=== PATIENT | male | born 1980 | race Caucasian/White ===

== ENCOUNTER 2017-10-11 04:14 | Emergency (ER) | payer BC ==
[2017-10-11 04:59] LABS: ABS Basophils 0.1 10^3/ul (0-0.2); ABS Eosinophils 0.1 10^3/ul (0-0.6); ABS Lymphocytes 1.8 10^3/ul (1.0-4.8); ABS Monocytes 0.7 10^3/ul (0-0.8); ABS Nucleated RBC 0 10^3/ul; Eosinophil % 1.3 % (0-6); Hematocrit 40 % (42-52); Hemoglobin 13.8 g/dl (14.0-18.0); Lymphocyte % 23.1 % (25-47); Mean Corpuscular HGB Conc 34 g/dl (31-36); Mean Corpuscular Hemoglobin 31 pg (27-31); Mean Corpuscular Volume 89 fL (80-94); Mean Platelet Volume 6.7 um3 (7.4-10.4); Nucleated Red Blood Cells % 0; Platelet Count 335 10^3/ul (150-450); Red Blood Count 4.53 10^6/ul (4.0-5.4); Red Cell Distribution Width 13 % (10.5-15); White Blood Count 7.6 10^3/ul (3.5-10.8)
[2017-10-11 05:15] LABS: EGFR Non-African American 109.2 (>60)
[2017-10-11] MEDS ORDERED: Iohexol 300* (CONTRAST) 10 ML SDV IV ONE (05:19)
[2017-10-11] MEDS ORDERED: Clindamycin 900 MG IVPREMIX(* 900 MG/50 ML SDV IV ONE (06:27)
--- NOTE | 2017-10-11 06:48 | ED ---
Anshul Field Jennifer, scribed for Aneudy Rain MD on 10/11/17 at 0443 . Throat Pain/Nasal Congestion - HPI Summary HPI Summary: The patient is a 37 year old male who presents with right sided facial swelling for one day. The patient describes it started out as a small bump yesterday but got bigger this morning. He went to see his PCP yesterday at 14:00, but it has doubled in size since then. The patient additionally complain of right ear pain and right jaw aching. - History of Current Complaint Chief Complaint: EDFacialInjury Time Seen by Provider: 10/11/17 04:18 Hx Obtained From: Patient Onset/Duration: Sudden Onset, Lasting Days - 1 day, Still Present, Worse Since - 14:00 yesterday Severity: Moderate Cough: None - Allergies/Home Medications Allergies/Adverse Reactions: Allergies Allergy/AdvReac Type Severity Reaction Status Date / Time No Known Allergies Allergy Verified 09/17/13 06:28 PMH/Surg Hx/FS Hx/Imm Hx Endocrine/Hematology History: Denies: Hx Diabetes Cardiovascular History: Denies: Hx Hypertension, Hx Pacemaker/ICD Sensory History: Reports: Hx Contacts or Glasses - WILL WEAR GLASSES DAY OF SURGERY Denies: Hx Hearing Aid Opthamlomology History: Reports: Hx Contacts or Glasses - WILL WEAR GLASSES DAY OF SURGERY Psychiatric History: Denies: Hx Panic Disorder - Surgical History Surgery Procedure, Year, and Place: RT KNEE SURGERY Hx Anesthesia Reactions: No Infectious Disease History: No Infectious Disease History: Denies: Traveled Outside the [place] in Last 30 Days - Family History Known Family History: Negative: Diabetes - Social History Alcohol Use: Occasionally Substance Use Type: Reports: None Hx Tobacco Use: No Smoking Status (MU): Never Smoked Tobacco Review of Systems ENT: Other - jaw pain Positive: Ear Ache Positive: Other - right face swelling All Other Systems Reviewed And Are Negative: Yes Physical Exam - Summary Physical Exam Summary: Appearance: Well appearing, no pain distress Skin: warm, dry, reflects adequate perfusion Head/face: normal Eyes: EOMI, DEBBIE ENT: preauricular firm mass, tenderness without adjacent adenopathy. no real warmth to it. No gingival tenderness or swelling. dentition looks normal. Otherwise normal. Moist mucous membranes. Neck: supple, non-tender Respiratory: CTA, breath sounds present Cardiovascular: RRR, pulses symmetrical Abdomen: non-tender, soft Bowel Sounds: present Musculoskeletal: normal, strength/ROM intact Neuro: normal, sensory motor intact, A&Ox3 Triage Information Reviewed: Yes Vital Signs On Initial Exam: Initial Vitals Temp Pulse Resp BP Pulse Ox 97.8 F 65 16 128/66 100 10/11/17 04:18 10/11/17 04:18 10/11/17 04:18 10/11/17 04:18 10/11/17 04:18 Vital Signs Reviewed: Yes Diagnostics - Vital Signs Vital Signs Temp Pulse Resp BP Pulse Ox 10/11/17 04:18 97.8 F 65 16 128/66 100 - Laboratory Lab Results: Lab Results 10/11/17 10/11/17 10/11/17 Range/Units 04:49 04:49 04:49 WBC 7.6 (3.5-10.8) 10^3/ul RBC 4.53 (4.0-5.4) 10^6/ul Hgb 13.8 L (14.0-18.0) g/dl Hct 40 L (42-52) % MCV 89 (80-94) fL MCH 31 (27-31) pg MCHC 34 (31-36) g/dl RDW 13 (10.5-15) % Plt Count 335 (150-450) 10^3/ul MPV 6.7 L (7.4-10.4) um3 Neut % (Auto) 65.5 (38-83) % Lymph % (Auto) 23.1 L (25-47) % Titus % (Auto) 9.4 H (0-7) % Eos % (Auto) 1.3 (0-6) % Baso % (Auto) 0.7 (0-2) % Absolute Neuts (auto) 5.0 (1.5-7.7) 10^3/ul Absolute Lymphs (auto) 1.8 (1.0-4.8) 10^3/ul Absolute Monos (auto) 0.7 (0-0.8) 10^3/ul Absolute Eos (auto) 0.1 (0-0.6) 10^3/ul Absolute Basos (auto) 0.1 (0-0.2) 10^3/ul Absolute Nucleated RBC 0 10^3/ul Nucleated RBC % 0 Sodium 138 L (139-145) mmol/L Potassium 4.1 (3.5-5.0) mmol/L Chloride 107 (101-111) mmol/L Carbon Dioxide 27 (22-32) mmol/L Anion Gap 4 (2-11) mmol/L BUN 20 (6-24) mg/dL Creatinine 0.79 (0.67-1.17) mg/dL Est GFR ( Amer) 140.4 (>60) Est GFR (Non-Af Amer) 109.2 (>60) BUN/Creatinine Ratio 25.3 H (8-20) Glucose 105 H (70-100) mg/dL Lactic Acid 0.9 (0.5-2.0) mmol/L Calcium 9.0 (8.6-10.3) mg/dL C-Reactive Protein 17.27 H (< 5.00) mg/L Result Diagrams: 10/11/17 04:49 10/11/17 04:49 Lab Statement: Any lab studies that have been ordered have been reviewed, and results considered in the medical decision making process. - CT CT Neck CT Interpretation: No Acute Changes - The visualized intracranial and orbital contents are normal. There is edema in the right neck involving the parotid gland may represent cellulitis and/or infection the fragment. There are no stones or duct citation. No abscess. Mastoid air cells and middle ear's are patent bilaterally. IMPRESSION: Right facial cellulitis and/or parotitis without stone, duct dilation or abscess. CT Interpretation Completed By: Radiologist Re-Evaluation - Re-Evaluation First Eval Re-Evaluation Time: 06:46 Change: Unchanged EENT Course/Dx - Course Course Of Treatment: Patient with preauricular swelling and tenderness with possible parotid gland involvement versus adenopathy versus sialoadenitis. CT scan confirms parotitis. IV clindamycin was given. No fever or elevated white blood cell count. Discussed with ENT who will follow him up today in the office. Encouraged to do warm compresses to the area. Patient is not ill- appearing. - Differential Diagnoses Differential Diagnoses: Shon's Angina, Odontogenic Pain, Other - Sialoadenitis , parotitis, mumps, dental abscess - Diagnoses Provider Diagnoses: Parotitis - Provider Notifications Discussed Care Of Patient With: Hugh Naranjo Time Discussed With Above Provider: 06:35 Instructed by Provider To: Other - Dr. Naranjo will see patient in his office today at 08:30. Discharge - Sign-Out/Discharge Documenting (check all that apply): Discharge/Admit/Transfer - Discharge Plan Condition: Good Disposition: HOME Prescriptions: Clindamycin Cap(NF) [Clindamycin Cap 300 mg Cap(NF)] 300 mg PO Q6H #28 cap Forms: *Work Release Referrals: Hugh Naranjo MD [Medical Doctor] - Additional Instructions: You have parotitis. Call the office of Dr. Naranjo at 8:30 this morning and be prepared to be seen in the office today. Warm compresses to the area. Stay well hydrated. Sour candies may help. Return with fever, vomiting, worse or other concerns. - Billing Disposition and Condition Condition: GOOD Disposition: HOME The documentation as recorded by the Anshul castle Jennifer accurately reflects the service I personally performed and the decisions made by me, Aneudy Rain MD.
--- NOTE | 2017-10-11 07:55 | RAD ---
INDICATION: 2 days of left facial swelling COMPARISON: None TECHNIQUE: A CT scan of the neck was performed with intravenous contrast following intravenous injection of 50 ml of Omnipaque 300 nonionic contrast. Contiguous axial sections were obtained from the skull base through the lung apices. Images were reconstructed in the coronal and sagittal planes. FINDINGS: The airway is patent. The epiglottis and aryepiglottic folds appear within normal limits. No retropharyngeal soft tissue swelling is noted. No significant enlarged nodes are seen. There is enlargement and heterogeneity of the attenuation of the right parotid gland relative to the left. Overlying the parotid gland there is infiltration of the subcutaneous fat. No focal masses or hyperattenuating stones are visualized. The submandibular glands appear to be within normal limits. The thyroid gland appears normal. The lung apices appear clear. The visualized portion of the paranasal sinuses and mastoid air cells appear clear. No significant focal osseous abnormality is seen. IMPRESSION: CT findings are consistent with right parotiditis without a readily apparent etiology.
[2017-10-11 08:02] VITALS: BP 120/68
== END 2017-10-11 08:01 | disposition home or self-care (01) ==
LOC: ED 04:14
DX: K11.20 Sialoadenitis, unspecified (principal); H92.01 Otalgia, right ear; R68.84 Jaw pain
CPT/HCPCS: 36415; 70491; 80048; 83605; 85025; 86140; 99282; Q9967